=== PATIENT | female | born 1960 | race Caucasian/White ===

== ENCOUNTER 2023-10-04 16:10 | Emergency (ER) | payer OTHER ==
[2023-10-04] MEDS ORDERED: Ketorolac Tromethamine 30 MG (1 mL) VIAL ONE (16:45)
[2023-10-04] MEDS ORDERED: fentaNYL 50 mcg/mL 1 mL Vial ONE (16:45)
[2023-10-04] MEDS ORDERED: Dexamethasone 10 MG/ML VIAL ONE (16:45)
[2023-10-04] MEDS ORDERED: Lorazepam 2 MG/ML VIAL ONE (16:45)
== END 2023-10-04 17:50 | disposition home or self-care (01) ==
LOC: CSHERS 16:10
DX: S70.01XA Contusion of right hip, initial encounter (principal); M54.41 Lumbago with sciatica, right side; F17.210 Nicotine dependence, cigarettes, uncomplicated; W19.XXXA Unspecified fall, initial encounter
CPT/HCPCS: 72170; 96374; 96375; J1100; J1885; J2060; J3010

== ENCOUNTER 2023-12-26 08:50 | Emergency (ER) | payer OTHER ==
[2023-12-26] MEDS ORDERED: predniSONE 20 MG TAB ONE (09:46)
[2023-12-26] MEDS ORDERED: Acetaminophen 500 MG TAB ONE (09:58)
[2023-12-26] MEDS ORDERED: Lidocaine 4% Patch ONE (09:58)
[2023-12-26] MEDS ORDERED: predniSONE 50 MG TAB PO SCH (10:00)
== END 2023-12-26 10:26 | disposition left against medical advice (07) ==
LOC: CSHERS 08:50
DX: M25.511 Pain in right shoulder (principal); G62.9 Polyneuropathy, unspecified; F17.210 Nicotine dependence, cigarettes, uncomplicated; X50.0XXA Overexertion from strenuous movement or load, initial encounter; Z91.81 History of falling
CPT/HCPCS: J7512